=== PATIENT | male | born 1945 ===

== ENCOUNTER → 2017-12-16 | Outpatient (REF) | payer MEDICARE, BC ==
[2017-12-16 21:16] LABS: ALT/SGPT < 6 U/L (12-78); ANION GAP 9 MEQ/L (8-16); AST/SGOT 17 U/L (7-37); BLOOD UREA NITROGEN 9 MG/DL (7-18); CALCIUM LEVEL 7.6 MG/DL (8.8-10.2); CARBON DIOXIDE LEVEL 30 MEQ/L (21-32); CHLORIDE LEVEL 107 MEQ/L (98-107); CHOLESTEROL LEVEL 113 MG/DL (<200); CHOLESTEROL RISK RATIO 2.456 (<5); CPK CREATINE PHOSPHOKINASE 25 U/L (39-308); CREATININE FOR GFR 0.81 MG/DL (0.70-1.30); GLOMERULAR FILTRATION RATE > 60.0 (>42); GLUCOSE, FASTING 68 MG/DL (70-100); HDL CHOLESTEROL 46 MG/DL (>40); LDL CHOLESTEROL 50.4 MG/DL (<100); NON-HDL-C 67 MG/DL; POTASSIUM SERUM 2.4 MEQ/L (3.5-5.1); SODIUM LEVEL 146 MEQ/L (136-145); TRIGLYCERIDES LEVEL 83 MG/DL (<150)
== END ==
LOC: M LAB REF 18:01
DX: I25.10 Atherosclerotic heart disease of native coronary artery without angina pectoris (principal); I38 Endocarditis, valve unspecified; E78.5 Hyperlipidemia, unspecified; I48.91 Unspecified atrial fibrillation
CPT/HCPCS: 84460

== ENCOUNTER → 2017-12-16 | Outpatient (REF) | payer MEDICARE, BC | LOC: M LAB REF 18:07 | DX: Z51.81 Encounter for therapeutic drug level monitoring (principal); Z79.2 Long term (current) use of antibiotics; A49.1 Streptococcal infection, unspecified site ==